=== PATIENT | female | born 1940 | race Caucasian/White ===

== ENCOUNTER → 2020-01-07 | Outpatient (CLI) | payer OTHER ==
[~2020-01-07] MED LIST: APAP500; CALCIUM PO; CRESTOR10 MG PO; CRESTOR5 MG PO; DIOVAN HCT 1601 EACH PO; DIOVAN160 MG PO; ESTRACE0.5 MG PO; FUROSEMIDE 20 M20 M1 PO; K-DUR10 MEQ PO; MOBIC15 MG PO; NORVASC5 MG PO; PREMARIN1.25 MG PO; PRILOSEC 20 MG20 MG PO; TOPROL XL200 MG PO; TRAMADOL 50 MG50 MG PO; VITAMIN D10000 UNIT PO; VITAMINC500 PO; ZETIA10 MG PO; [UNRECOGNIZED DRUG - OTHER]
== END ==
LOC: SJCVC 14:08
PROVIDERS: ATTEND Internal Medicine
DX: I49.1 Atrial premature depolarization (principal); R55 Syncope and collapse; I10 Essential (primary) hypertension; E78.5 Hyperlipidemia, unspecified; Q21.0 Ventricular septal defect; Z79.899 Other long term (current) drug therapy

== ENCOUNTER → 2020-07-08 | Outpatient (CLI) | payer OTHER | LOC: SJCVC 13:21 | PROVIDERS: ATTEND Internal Medicine | DX: R55 Syncope and collapse (principal); I10 Essential (primary) hypertension; E78.5 Hyperlipidemia, unspecified; Q21.0 Ventricular septal defect; Z79.899 Other long term (current) drug therapy ==

== ENCOUNTER → 2021-01-06 | Outpatient (CLI) | payer OTHER | LOC: SJCVC 13:45 | PROVIDERS: ATTEND Internal Medicine | DX: R55 Syncope and collapse (principal); I10 Essential (primary) hypertension; E78.5 Hyperlipidemia, unspecified; Z79.899 Other long term (current) drug therapy; Z88.1 Allergy status to other antibiotic agents; Z88.8 Allergy status to other drugs, medicaments and biological substances; Z88.5 Allergy status to narcotic agent ==

== ENCOUNTER → 2021-05-11 | Outpatient (CLI) | payer OTHER | LOC: SJCVC 13:25 | PROVIDERS: ATTEND Internal Medicine | DX: E87.1 Hypo-osmolality and hyponatremia (principal); I10 Essential (primary) hypertension; E78.5 Hyperlipidemia, unspecified; Z79.899 Other long term (current) drug therapy; Z79.2 Long term (current) use of antibiotics ==

== ENCOUNTER → 2021-07-09 | Outpatient (CLI) | payer OTHER | LOC: SJCVC 09:52 | PROVIDERS: ATTEND Internal Medicine Cardiovascular Disease | DX: I44.0 Atrioventricular block, first degree (principal); R55 Syncope and collapse; I10 Essential (primary) hypertension; I49.5 Sick sinus syndrome; Q21.0 Ventricular septal defect; Z88.5 Allergy status to narcotic agent; Z88.8 Allergy status to other drugs, medicaments and biological substances; Z90.49 Acquired absence of other specified parts of digestive tract; Z90.710 Acquired absence of both cervix and uterus; Z98.890 Other specified postprocedural states; Z79.899 Other long term (current) drug therapy; E78.5 Hyperlipidemia, unspecified ==

== ENCOUNTER → 2021-07-23 | Outpatient (CLI) | payer OTHER | LOC: SJCVCIMAG 06:54 | PROVIDERS: ATTEND Internal Medicine | DX: I08.8 Other rheumatic multiple valve diseases (principal) ==

== ENCOUNTER 2021-08-03 08:28 | Observation (INO) | payer OTHER ==
[~2021-08-03] VITALS: Ht 157.5 cm; Wt 58.5 kg
[2021-08-03 10:05] LABS: ABSOLUTE NEUTROPHILS 5.4 thou/uL (1.4-8.2); BASOPHILS 0.9 % (0.0-2.0); EOSINOPHILS 5.3 % (0.0-3.0); HEMATOCRIT 40.4 % (37.0-47.0); HEMOGLOBIN 13.3 gm/dL (12.0-15.0); MCH 28.9 pg (26.0-34.0); MCV 87.5 fL (80.0-100.0); MONOCYTES 8.4 % (1.0-8.0); POLYS 68.4 % (36.0-66.0); RBC 4.62 mil/uL (4.20-5.00); RDW 13.8 % (10.5-14.5)
[2021-08-03 10:13] VITALS: BP 145/70
[2021-08-03 10:16] LABS: CALCIUM 10.5 mg/dL (8.5-10.1); CREATININE 0.7 mg/dL (0.6-1.0); POTASSIUM 4.2 mmol/L (3.5-5.1)
[2021-08-03 10:23] LABS: ALBUMIN 4.3 g/dL (3.4-5.0); TOTAL BILIRUBIN 0.4 mg/dL (0.2-1.0); TOTAL PROTEIN 8.1 g/dL (6.4-8.2)
[2021-08-03] MEDS ORDERED: IRBESARTAN150 MG PO (10:24)
[2021-08-03] MEDS ORDERED: CRESTOR10 MG PO (10:25)
[2021-08-03] MEDS ORDERED: METOPROLOL TART25 MG PO (10:26)
[2021-08-03 10:35] LABS: PLATELET COUNT 366 thou/uL (150-400)
[2021-08-03 10:39] LABS: APTT 20.9 Seconds (24.5-32.8); INR 0.93; PROTIME 10.2 Seconds (10.5-12.1)
--- NOTE | 2021-08-03 14:34 | 2DMMODE ---
[address] [address] 2 D/M-MODE ECHOCARDIOGRAM Name: MART GIRON Room #: REG [facility]#: [id number] Admission: 08/03/21 Attend Phys: Jaylan Hyatt MD Discharge: Date of : 44 Report #: [id number] THIS REPORT FOR: cc: Mychal Medina,Mychal Dangelo,Willy Landrum MD [facility] ~ APPROVED REPORT Study performed: 08/03/2021 14:07:01 EXAM: Comprehensive 2D, Doppler, and color-flow Echocardiogram Patient Location: Recovery Status: routine BSA: 1.59 HR: 79 bpm BP: 98/52 mmHg Rhythm: Pacemaker Other Information Study Quality: Good Indications Pacemaker Chest Pain Left Ventricle The left ventricle is normal size. There is normal LV segmental wall motion. There is normal left ventricular wall thickness. The left ventricular systolic function is normal. The left ventricular ejection fraction is within the normal range. LVEF is 65%. Right Ventricle The right ventricle is normal size. The right ventricular systolic function is normal. Pacemaker lead is present in the right ventricle. Atria Left atrium is at the upper limits of normal. Right atrium is at the upper limits of normal. Pacemaker lead is present in the right atrium. Aortic Valve The aortic valve is normal in structure. [address] [address] 2 D/M-MODE ECHOCARDIOGRAM Name: MART GIRON Room #: REG [facility].#: [id number] Admission: 08/03/21 Attend Phys: [facility]: Date of : 44 Report #: [id number] Mitral Valve The mitral valve is normal in structure. Tricuspid Valve The tricuspid valve is normal in structure. Pulmonic Valve The pulmonary valve is normal in structure. Great Vessels The aortic root is normal in size. Pericardium Trace pericardial effusion. <Conclusion> The left ventricular systolic function is normal. There is normal LV segmental wall motion. LVEF is 65%. The aortic valve is normal in structure. The mitral valve is normal in structure. Trace-small pericardial effusion. <ELECTRONICALLY SIGNED> By: Willy White MD, [facility] 08/03/21 1434 1434 143 Willy White MD, FAC /INF
--- NOTE | 2021-08-03 16:14 | EKG ---
[place] [address] [facility] [employer] [place] [address] ELECTROCARDIOGRAM REPORT Name: MART GIRON Room #: REG [facility]#: [id number] Admission: 08/03/21 Attend Phys: Jaylan Hyatt MD Discharge: Date of : 44 Report #: [id number] [facility] Test Date: 2021-08-03 Test Time: 13:50:57 Pat Name: MART GIRON Department: Room: Gender: F Compo Caster: : 1940 Requested By: Jaylan Hyatt Order Number: [id number] MD: Jesús Avina Measurements Intervals [place] Rate: 71 P: -54 MO: 233 QRS: 72 QRSD: 89 T: -68 QT: 530 QTc: 577 Interpretive Statements Sinus or ectopic atrial rhythm Prolonged MO interval Low voltage, precordial leads Abnormal T, consider ischemia, inferior leads Borderline ST elevation, lateral leads Prolonged QT interval Compared to ECG 12/23/2012 03:33:36 Ectopic atrial rhythm now present Low QRS voltage now present T-wave abnormality now present Possible ischemia now present Electronically Signed On 08-03-2021 16:14:24 SALES ADMINISTRATION MANAGER by Jesús Avina [email or web address] <ELECTRONICALLY SIGNED> By: Jesús Avina MD, FACC 08/03/21 1614 1350 1350 Jesús Avina MD, FAC /EPI
--- NOTE | 2021-08-03 20:24 | NUR ---
LATE ENTRY 151: PT BROUGHT FROM PACU TO CV HOLDING AFTER PPM PLACEMENT LEFT CHEST. PT RECEIVED TORADOL AND SOLUMEDROL IN PACU FOR DIFFICULTY BREATHING AND FEELS MUCH BETTER NOW. VSS. NSR ON MONITOR 163: PT ANXIOUS AND SAYING THAT SHE IS HAVING A HARD TIME BREATHING. CRYING AND TAKING SHALLOW BREATHS. LUNGS CLEAR AND SAT 99%. DR DIAMOND NOTIFIED. DR DIAMOND COMES TO SEE PT. 1654: ATIVAN 0.5MG PO GIVEN. PT RELAXES IMMEDIATELY AND STATES SHE FEELS BETTER. VSS. PT DOZES OFF. 1999: UP TO COMMODE WITH ASSISTANCE. LEFT CHEST INCISION SITE BRUISED BUT EDGES WELL INTACT. VOIDS ON COMMODE. PT DOESN'T WANT FOOD BUT TAKES ICE CHIPS. STILL WAITING ON CCU ROOM ASSIGNMENT
--- NOTE | 2021-08-03 21:15 | NUR ---
PT SLEEPING EASILY WOKEN. VSS. PT HAS NO C/O OR REQEUST AT THIS TIME.
--- NOTE | 2021-08-03 22:31 | NUR ---
PT C/O HEADACHE REQEUSTING TYLENOL. MED GIVING AND WARM BLANKETS PROVDIED. ICE CHIPS AT BEDSIDE. PT HAS NO OTHER C/O OR REQUEST AT THIS TIME.
--- NOTE | 2021-08-03 23:12 | NUR ---
ELEVATING GRADER OPERATOR ADVISED PT WILL GO TO ROOM 212. PT AND ALL BELONGINGS TAKEN TO 212 PER CART
[2021-08-04 04:48] VITALS: BP 133/62
--- NOTE | 2021-08-04 06:51 | NUR ---
ASSUMED CARE OF PT AT 2330. PT TRANSFERRED FROM DESIGN ENGINEERING SPECIALIST FROM PACER INSERTION MIDDAY. PT ASSESSED TO BE AOX4 78M, STABLE ON ROOM AIR, TYLENOL FOR HEADACHE, VSS, ANXIETY. PT WAS ABLE TO REST QUIETLY AFTER ALL ADMISSION CHECKLIST COMPLETED. NS ON THE MONITOR, NO COMPLAINTS AT THIS TIME.
[2021-08-04 09:21] VITALS: BP 133/66
[2021-08-04 12:27] VITALS: BP 133/66
--- NOTE | 2021-08-04 12:59 | NUR ---
Pt discharged at 1300. Pt was A&0x4, VS stable and afebrile. Incision site is clean, dry and intact. Pt able to ambulate to BR and void without any problems. Pt independent with ADLs. No complaints of pain. No current concerns.
--- NOTE | 2021-08-04 13:10 | 2DMMODE ---
[address] [address] 2 D/M-MODE ECHOCARDIOGRAM Name: MART GIRON Room #: 212-P [facility] M.R.#: [id number] Admission: 08/03/21 Attend Phys: Jaylan Hyatt MD Discharge: Date of : 44 Report #: [id number] THIS REPORT FOR: cc: Mychal Medina,Willy Sam MD [facility] ~ APPROVED REPORT Study performed: 08/04/2021 11:20:09 EXAM: Comprehensive 2D, Doppler, and color-flow Echocardiogram Patient Location: Bedside Room #: [facility] Status: routine BSA: 1.59 HR: 78 bpm BP: 133/66 mmHg Rhythm: Pacemaker Other Information Study Quality: Good Indications Pacemaker Chest Pain Hypertension/HDD Left Ventricle The left ventricle is normal size. There is normal LV segmental wall motion. There is normal left ventricular wall thickness. The left ventricular systolic function is normal. The left ventricular ejection fraction is within the normal range. LVEF is 55-60%. Right Ventricle The right ventricle is normal size. The right ventricular systolic function is normal. Pacemaker lead is present in the right ventricle. Atria The left atrium size is normal. The right atrium size is normal. Pacemaker lead is present in the right atrium. Aortic Valve The aortic valve is normal in structure. [address] [place] [address] 2 D/M-MODE ECHOCARDIOGRAM Name: MART GIRON Room #: 212-P [facility] M.R.#: [id number] Admission: 08/03/21 Attend Phys: Jaylan Hyatt Discharge: Date of : 44 Report #: [id number] Mitral Valve The mitral valve is normal in structure. Tricuspid Valve The tricuspid valve is normal in structure. Pulmonic Valve The pulmonary valve is normal in structure. Great Vessels The aortic root is normal in size. IVC is normal in size and collapses >50% with inspiration. Pericardium Trace-mild pericardial effusion. <Conclusion> The left ventricular systolic function is normal. There is normal LV segmental wall motion. LVEF is 55-60%. The aortic valve is normal in structure. The mitral valve is normal in structure. Trace-small pericardial effusion. Unchanged from yesterday <ELECTRONICALLY SIGNED> By: Willy White MD, FACC 08/04/211309 09 09 Willy White MD, FACC /INF
--- NOTE | 2021-08-10 10:37 | P ---
[facility] [place] [address] PROCEDURE REPORT Name: MART GIRON Room #: 212-P [facility] [place]#: [id number] Admission: 08/03/21 Attend Phys: Jaylan Hyatt MD Discharge: 08/04/21 Date of : 44 Report #: [id number] THIS REPORT FOR: cc: Mychal Medina Aaron DO Couchonnal, Luis F. MD ~ DATE OF SERVICE: 08/03/2021 PACEMAKER IMPLANTATION PREOPERATIVE DIAGNOSES: Sick sinus syndrome. POSTOPERATIVE DIAGNOSIS: Sick sinus syndrome. PROCEDURES PERFORMED: Dual chamber pacemaker implantation. ANESTHESIA: The patient underwent MAC anesthesia with no anesthesia related complications. DESCRIPTION OF PROCEDURE: The patient provided informed consent. She was brought to the EP laboratory in a fasting and sedated state, prepped and draped in a standard fashion. She received IV antibiotics and underwent a venogram. Next, I injected lidocaine at the incision site. Incision was made. Pocket created over prepectoral fascia x2 ____. An access was obtained to the left axillary vein x 2. Sheaths positioned using the modified Seldinger technique. Leads were positioned in the right ventricular apex and right atrial appendage, both with adequate pacing and sensing thresholds. Leads were sutured to the prepectoral fascia. Device connected, tug test performed. Pocket was irrigated with vancomycin. The pocket was closed in 2 layers and surgical glue was placed to outer skin layer. The patient awoke neurologically and hemodynamically intact. No complications and no significant bleeding. The implanted pacemaker was a [employer] model number [id number], serial number [id number]. The atrial lead was a 5076, 45 cm, serial number [id number]. Ventricular lead was a 5076, 52 cm, serial number [id number]. The atrial lead demonstrated P-wave of 1.8 millivolts, pacing impedance of 531 ohms, pacing threshold 1.9 volts at 1 millisecond. The RV lead demonstrated R waves of 10.7 millivolts, pacing impedance of 602 ohms and a pacing threshold of 0.7 volts at 0.5 milliseconds. The device was programmed to the DDDR 60-130. CONCLUSION: Successful dual chamber pacemaker implantation. <ELECTRONICALLY SIGNED> By: Jaylan Hyatt MD 08/10/21 1037 1327 2243 Jaylan Hyatt MD /nt
== END 2021-08-04 13:14 | disposition home or self-care (01) ==
LOC: CATH 08:28 → 2N 23:35
PROVIDERS: ADMIT Internal Medicine Cardiovascular Disease; ATTEND Internal Medicine Cardiovascular Disease
DX: I49.5 Sick sinus syndrome (principal); Z20.822 Contact with and (suspected) exposure to COVID-19; I10 Essential (primary) hypertension; E78.5 Hyperlipidemia, unspecified; Q21.0 Ventricular septal defect; R55 Syncope and collapse; Z79.899 Other long term (current) drug therapy
CPT/HCPCS: 62110; 62900; 70005

== ENCOUNTER → 2021-08-25 | Outpatient (CLI) | payer OTHER ==
[~2021-08-25] MED LIST changes: +IRBESARTAN150 MG PO; +METOPROLOL TART25 MG PO
== END ==
LOC: SJCVCIMAG 09:52
PROVIDERS: ATTEND Internal Medicine
DX: I08.3 Combined rheumatic disorders of mitral, aortic and tricuspid valves (principal); J90 Pleural effusion, not elsewhere classified; R94.31 Abnormal electrocardiogram [ECG] [EKG]; I48.0 Paroxysmal atrial fibrillation; I10 Essential (primary) hypertension; E78.5 Hyperlipidemia, unspecified; I31.3 Pericardial effusion (noninflammatory); Q21.0 Ventricular septal defect; Z79.2 Long term (current) use of antibiotics; Z79.899 Other long term (current) drug therapy; Z88.5 Allergy status to narcotic agent; Z88.8 Allergy status to other drugs, medicaments and biological substances; Z88.1 Allergy status to other antibiotic agents; Z86.16 Personal history of COVID-19